=== PATIENT | male | born 2000 | race Hispanic/Latino ===

== ENCOUNTER 2021-12-11 19:53 | Emergency (ER) | payer OTHER ==
[~2021-12-11] VITALS: Ht 170.2 cm; Wt 59.0 kg
[2021-12-11] MEDS ORDERED: LEVOTHYROXINE25 MC1 PO (23:53)
--- NOTE | 2021-12-12 18:52 | EKG ---
[facility] [address] [facility] [place] [address] Signed Normal sinus rhythm with sinus arrhythmia Normal ECG No previous ECGs available Confirmed by KELSI BENITES MD ([id number]) on 12/12/2021 6:52:22 PM Electronically Signed By: KELSI BENITES MD 12/12/211851 PATIENT NAME: KASEY BOWMAN ANGEL Electrocardiogram DATE OF : [birth year] PHYSICIAN: KELSI BENITES MD REPORT #: [id number] REPORT IS CONFIDENTIAL AND NOT TO BE RELEASED WITHOUT AUTHORIZATION
== END 2021-12-12 00:05 | disposition home or self-care (01) ==
LOC: ED 19:53
DX: E03.9 Hypothyroidism, unspecified (principal)
CPT/HCPCS: 36415; 80048; 83735; 84443; 85025; 93005; 93010; 99285-25

== ENCOUNTER 2025-02-25 21:03 | Emergency (ER) | payer OTHER ==
[~2025-02-25] VITALS: Ht 170.2 cm; Wt 66.0 kg
[~2025-02-25 21:03] MED LIST: LEVOTHYROXINE25 MC1 PO
[2025-02-25] MEDS ORDERED: BUSPIRONE HCL10 MG PO (21:14)
[2025-02-25 21:31] LABS: BASOPHILS 0.4 % (0-2); EOSINOPHILS 1.6 % (0-6); HEMATOCRIT 41.1 % (35.0-50.0); LYMPHOCYTES 26.8 % (24-44); MCH 31.4 (27-36); MCHC 36.5 g/dl (30-36); MCV 85.9 fl (81-99); MONOCYTES 7.5 % (0-12); NEUTROPHILS 63.7 % (39-80); PLATELET COUNT 277 K/uL (140-440); RBC 4.78 M/ul (4.3-5.7); RDW 14.1 (10.5-15.0)
[2025-02-25 21:46] LABS: ALBUMIN 4.3 g/dL (3.4-5.0); ALBUMIN/GLOBULIN RATIO 1.23 (1.1-2.4); ALKALINE PHOSPHATASE 113 U/L (46-116); ALT (SGPT) 15 U/L (14-59); ANION GAP 9.8 (7-21); AST (SGOT) 14 U/L (15-37); BILIRUBIN, TOTAL 0.4 mg/dL (0.2-1.0); BUN/CREATININE RATIO 8.13 (6.0-28.6); CALCIUM 8.5 mg/dL (8.5-10.1); CARBON DIOXIDE 27 mmol/L (21-32); CHLORIDE 104 mmol/L (98-107); CREATININE, SERUM 0.86 mg/dL (0.70-1.30); GLOMERULAR FILTRATION RATE,EST 125 mL/min (>60); MAGNESIUM 1.8 mg/dL (1.8-2.4); POTASSIUM 3.8 mmol/L (3.5-5.1); PROTEIN, TOTAL 7.8 g/dL (6.4-8.2); UREA NITROGEN 7 mg/dL (7-18)
[2025-02-25 22:12] VITALS: BP 116/76
--- NOTE | 2025-02-26 13:01 | EKG ---
[facility] [address] [facility] [place] [address] Signed Normal sinus rhythm Nonspecific intraventricular conduction delay Borderline ECG When compared with ECG of 11-DEC-2021 21:40, QRS duration has increased Confirmed by Orin Trinh MD ([id number]) on 02/26/2025 1:00:54 PM Electronically Signed By: ORIN TRINH MD 02/26/25 1301 PATIENT NAME: KASEY BOWMAN Electrocardiogram DATE OF : [birth year] PHYSICIAN: ORIN TRINH MD REPORT #: [id number] REPORT IS CONFIDENTIAL AND NOT TO BE RELEASED WITHOUT AUTHORIZATION
== END 2025-02-25 22:12 | disposition home or self-care (01) ==
LOC: ED 21:03
PROVIDERS: Emergency Medicine
DX: R07.89 Other chest pain (principal); E03.9 Hypothyroidism, unspecified
CPT/HCPCS: 36415; 71045; 80053; 83735; 84484; 85025; 93005; 93010; 99285-25